=== PATIENT | female | born 1935 | race Caucasian/White ===

== ENCOUNTER → 2023-10-23 15:12 | Outpatient (REF) | payer MEDICARE, OTHER, SELFPAY | LOC: RAD 15:12 | PROVIDERS: ATTENDING PHYSICIAN Orthopaedic Surgery Hand Surgery; FAMILY PHYSICIAN Internal Medicine Geriatric Medicine | DX: M19.011 Primary osteoarthritis, right shoulder (principal) | CPT/HCPCS: 73200 ==

== ENCOUNTER 2023-11-04 06:21 | Day surgery (SDC) | payer MEDICARE, OTHER, SELFPAY ==
--- NOTE | 2023-10-16 15:35 | CM ---
Patient is scheduled for an elective R Reverse TSA on 11/04/23. Spoke with patient's son and Emelina, staff at [facility] prior to surgery. Introduced role of Orthopedic Navigator. Patient lives at [facility] assisted living. Currently she needs assist
for some ADLs. She uses rollator in facility. She has a rolling walker, rollator, w/c, shower seat with rails. She has had [facility] in past and she has been to [facility] in past. PCP is Dr. Olivares.
Discussed orthopedic program and post surgical plans. Reviewed anticipated length of stay and assistance that she may need at discharge. Explained that goal is for her to return home at discharge. Also reviewed MD follow up and transition to
outpatient therapy. Son agrees to what ever team recommends back to [facility] or short stay at [facility].
Son does not live nearby.
Son to assist patient to complete online education.
Plan: Orthopedic Navigator will be involved in the care of patient after surgery and will reassess discharge needs at that time.
[2023-10-23 10:50] VITALS: BMI 40.8
--- NOTE | 2023-10-23 12:37 | CM ---
Emelina Perez from [facility] notified Navigator that after talking to son plan is for patient to go to [facility] after surgery. Son is aware that it will be private pay as patient will not be inpatient at . Referral sent in allscripts to [facility].
[2023-10-23 15:57] VITALS: BMI 40.8
[2023-11-04] VITALS (17 sets, daily range): BP systolic 114–149; BP diastolic 57–88; PULSE 86; O2SAT 96; BMI 40.8
[2023-11-04] MEDS: VANCOCIN 300 MG IV (09:46)
[2023-11-04] MEDS: VANCOCIN 300 ML IV (09:46)
[2023-11-04] MEDS: NORMOSOL-R 1000 IV ×2 (09:47→14:46)
[2023-11-04] MEDS: CELEBREX 200 MG PO (09:48)
[2023-11-04] MEDS: TYLENOL 1000 MG PO (09:48)
--- NOTE | 2023-11-04 15:16 | CON.CAR ---
Addendum entered and electronically signed by Felix Faith MD 11/04/23 17:00:
I saw and examined the patient.
The LEATHER WORKER's note was reviewed and I agree with the note.
88-year-old woman with history of coronary artery disease, LAD stenting 2011, bifascicular block and chronic lower extremity edema who had right shoulder replacement today. Patient had some PVCs on telemetry which prompted a troponin which was 0.07
and consult was requested. Patient is comfortable in no distress no chest pain or shortness of breath. No symptoms to suggest angina. Patient has chronic lower extremity edema respiratory status appears stable and no clear evidence of
decompensated heart failure. Suspect non-RI troponin elevation. ECG sinus rhythm with frequent PVCs.
-Monitor on telemetry
-Check labs including potassium and magnesium
-Follow-up troponin as ordered
-Reassessment in a.m.
Original Note:
Consultation
Consultation Request
Date/Time Consultation Requested: 11/04/23 13:45
Date/Time Consultation Performed: 11/04/23 15:15
Requesting Provider: Beth Leahy PA-C
Performing Provider: HOWARD Doss for Dr. Faith
Reason for Consultation: Abnormal troponin
Medical History
-
Chief Complaint: Right shoulder replacement
History of Present Illness:
Gaby Couch is an 88-year-old female (known to Dr. Steve, her primary audio engineer), with coronary artery disease (mid LAD stent 2011), bifascicular block, PACs, mild/moderate tricuspid regurgitation, hypertension, hyperlipidemia, and chronic right
lower extremity edema presented for scheduled right shoulder replacement with Dr. Fernandez today. Cardiology was consulted after an abnormal troponin was found. This was prompted by changes on her telemetry.
Past Medical History
Past Medical History: CAD, HTN, Hypercholesterolemia, Valvular Disease (Tricuspid valve regurgitation) and Other (Bifascicular block, PACs)
Past Surgical History: Orthopedic
Social History
Tobacco: Non-Smoker
Alcohol: None
Living: Assisted Living ([facility])
Employment: Retired
Family History
Family History: Reviewed & Not Pertinent
Allergies / Home Medications
Allergy/AdvReac Type Severity Reaction Status Date / Time
No Known Drug Allergies Allergy Unknown Verified 11/04/23 09:42
Medication Instructions Recorded Confirmed Type
aspirin 81 mg chewable tablet 81 mg PO DAILY Blood clot 07/13/12 11/04/23 History
prevention/tx
ezetimibe 10 mg tablet 10 mg PO DAILY High cholesterol 05/28/21 11/04/23 History
pravastatin 40 mg tablet 40 mg PO HS High cholesterol 05/28/21 11/04/23 History
acetaminophen 500 mg tablet 1,000 mg PO BID Pain 10/21/23 11/04/23 History
calcium carbonate 600 mg-vitamin 1 tab PO DAILY hypocalcemia 10/21/23 11/04/23 History
D3 10 mcg (400 unit) tablet
(Calcium 600 + D(3))
coenzyme Q10 100 mg capsule 100 mg PO DAILY 10/21/23 11/04/23 History
dextromethorphan-guaifenesin 5 10 ml PO Q4H PRN cough 10/21/23 11/04/23 History
mg-100 mg/5 mL oral liquid
(Robitussin Cough-Chest Congestion
DM)
diclofenac sodium 1 % topical gel 2 g topical QID PRN Pain 10/21/23 11/04/23 History
(Voltaren Arthritis Pain)
gabapentin 100 mg capsule 100 mg PO TID Pain 10/21/23 11/04/23 History
hydrochlorothiazide 12.5 mg tablet 12.5 mg PO DAILY edema 10/21/23 11/04/23 History
multivitamin 1 tab PO DAILY 10/21/23 11/04/23 History
nitroglycerin 0.4 mg sublingual 0.4 mg sublingual Q5-15M PRN chest 10/21/23 10/21/23 History
tablet pain
nystatin 100,000 unit/gram topical 1 applic topical BID B/L groin 10/21/23 11/04/23 History
powder redness
oxycodone-acetaminophen 5 mg-325 0.5 tab PO Q6H PRN moderate to 10/21/23 11/04/23 History
mg tablet severe pain
polyethylene glycol 3350 17 gram 17 grams PO DAILY PRN contipation 10/21/23 10/21/23 History
oral powder packet
sennosides 8.6 mg tablet (senna) 8.6 mg PO PRN PRN constipation 10/21/23 10/21/23 History
trazodone 50 mg tablet 50 mg PO HS insomnia 10/21/23 11/04/23 History
mupirocin 2 % topical ointment 1 applic topical BID infection 10/23/23 Rx
prevention #1 tube
Review of Systems
-
History Source: Patient
All other systems: Negative unless noted
EENT: No Symptoms
Respiratory: No Symptoms
: No Symptoms
Physical Exam
Vital Signs
Temp Pulse Resp BP Pulse Ox
97.8 F 79 15 139/77 97
11/04/23 14:45 11/04/23 15:00 11/04/23 15:00 11/04/23 15:00 11/04/23 15:00
Lab Results
Troponin I 0.070 ng/ml H* 11/04/23 13:24
Physical Exam
General: Well Developed, Well Nourished, No Apparent Distress and Comfortable
HEENT: Normocephalic, Anicteric and Moist Mucous Membranes
Respiratory: Clear and Non Labored Respirations
Cardiac: S1/S2, Irregular Rhythm and Peripheral Edema
Breast: Deferred by me
GI: Soft, Non Tender, Non Distended and Normal Bowel Sounds
Rectal: Deferred by Provider
Genito-urinary: No Costovertebral Tender
Musculoskeletal: No Clubbing and No Cyanosis
Skin: Warm and Dry
Neuro: AO x 3
Hematologic/Lymphatic: No Lymphadenopathy
Psych: Calm
Impression / Plan
-
Abnormal troponin, likely non-ischemic myocardial injury in the setting of noncardiac surgery
-Chest pain free
-Trend to peak, currently 0.070
-EKG in am
CAD, stable without chest pain, LAD stent 2011, continue aspirin
PACs, chronic, asymptomatic, can consider beta-dutch if she becomes symptomatic
Bifascicular block, chronic
Mild to moderate tricuspid regurgitation
Hypercholesterolemia, on pravastatin, myalgias with atorvastatin and rosuvastatin
Data Reviewed
-
EKG: Report Reviewed by me (Sinus rhythm, frequent PVCs, RBBB, rate 90)
Medical Tests (Nuc Med, Echo etc): Report Reviewed by me (Prior echo as above)
Labs: Labs Reviewed by me
Old Records: Reviewed
--- NOTE | 2023-11-04 16:48 | PTCARENOTE ---
Patient admitted from pacu post right total shoulder.Neurovascular assessment is within normal limits and ongoing.The patient denies any pain.Vital signs are stable.Aquacell dressing on the right shoulder is clean and dry with no drainage.The
patient is in her bed with the call del cid in reach.Her family is at the bedside.
[2023-11-04] MEDS: NEURONTIN 200 MG PO ×2 (17:15→22:13)
[2023-11-04] MEDS: TORADOL 15 MG IV (17:16)
[2023-11-04] MEDS: TYLENOL 650 MG PO ×2 (17:16→20:44)
[2023-11-04] MEDS: ASPIRIN 325 MG PO (17:16)
[2023-11-04 17:34] LABS: Troponin I 0.055 ng/ml
[2023-11-04 17:45] LABS: Blood Urea Nitrogen 22 mg/dl (7-17); Calcium 8.5 mg/dl (8.4-10.2); Carbon Dioxide 29 mmol/L (22-30); Chloride 99 mmol/L (98-107); Estimated Creatinine Clearance 49 ml/min; Glucose 144 mg/dl (70-99); Potassium 3.6 mmol/L (3.5-5.1); Sodium 135 mmol/L (135-145); eGFR > 60.00
[2023-11-04] MEDS: BACTROBAN 2% OINTMENT 1 APPLIC NASAL (20:41)
[2023-11-04] MEDS: ANCEF 5 IV (20:41)
[2023-11-04] MEDS: DECADRON 4 MG PO (20:43)
[2023-11-04] MEDS: COLACE 100 MG PO (20:43)
[2023-11-04] MEDS: SENOKOT 17.1999999999999993 MG PO (20:44)
[2023-11-04] MEDS: PRAVACHOL 40 MG PO (22:13)
[2023-11-04] MEDS: PEPCID 20 MG PO (22:13)
[2023-11-04] MEDS: ZETIA 10 MG PO (22:13)
[2023-11-04] MEDS: DESYREL 50 MG PO (22:13)
[2023-11-05] MEDS: TYLENOL 650 MG PO ×4 (01:23→16:20)
[2023-11-05 03:38] VITALS: BP 145/71
[2023-11-05] MEDS: ANCEF 5 IV (04:09)
[2023-11-05] MEDS: TORADOL 15 MG IV (05:42)
[2023-11-05 07:30] VITALS: BP 132/64
--- NOTE | 2023-11-05 08:11 | CM ---
Addendum entered by Zelda Landon 11/05/23 11:53:
Patient has been cleared for discharge to [facility]. Met with patient and her son at bedside. Update provided. Son states that hopeful plan is for patient to return to [place] early next week. He is aware that patient will be private pay at [facility] since
she has not had an inpatient hospital stay.
[facility] Text sent to [facility] at [facility] with update.
Original Note:
Reviewed chart and held rounds with OT and nursing. Patient had planned elective R Reverse TSA yesterday. Met with patient at bedside. Confirmed information previously obtained for case management assessment and discussed discharge plans. The plan
continues to be for patient to go to [facility].
Referral and completed PASRR were sent to [facility]. Per Neha in admissions, bed is available for patient.
Report: [phone]

sample clerk to facilitate stretcher transport. Medical necessity and transport forms completed.
[2023-11-05] MEDS: ASPIRIN 325 MG PO (09:09)
[2023-11-05] MEDS: BACTROBAN 2% OINTMENT 1 APPLIC NASAL (09:09)
[2023-11-05] MEDS: MOBIC 15 MG PO (09:10)
[2023-11-05] MEDS: NEURONTIN 200 MG PO ×2 (09:10→16:21)
[2023-11-05] MEDS: DECADRON 4 MG PO (09:10)
[2023-11-05] MEDS: COLACE 100 MG PO (09:10)
[2023-11-05] MEDS: SENOKOT 17.1999999999999993 MG PO (09:11)
[2023-11-05 11:05] VITALS: BP 148/86
--- NOTE | 2023-11-05 11:57 | W.PN.ORTHO ---
Today's Communication / Plan
-
d/c
Assessment
.
Distal Motor Intact: Yes
Dressing:
Clean, dry and intact.
Assessment:
Troponin elevation/EKG t wave inversion likely due to stress of surgery/demand ischemia with PVCs--remained asymptomatic with trop trended down
--asa and statin continued uninterrupted
--cardiology appreciated
Plan
.
Surgery / Date: AVN-R Reverse TSA Dr. White 11/04/23
DVT Prophylaxis: Aspirin
Activity:
Out of bed.
PT/OT
Discharge Plan: SNF
Subjective
.
.:
Patient resting comfortably.
Vital Signs and Labs
.
Vital Signs and Labs:
Lab Results
11/04/23 17:21
Temp Pulse Resp BP Pulse Ox
98.1 F 106 18 148/86 94
11/05/23 11:05 11/05/23 11:05 11/05/23 11:05 11/05/23 11:05 11/05/23 11:05
Non-invasive Hgb result: 13.0
[2023-11-05] MEDS: TYLENOL PO (12:00)
--- NOTE | 2023-11-05 12:09 | W.DS.TRANS ---
DC Summary - [employer]
-
Discharge Instructions:
Sleep Apnea Risk Intermediate
Discharge Diagnosis/Procedures AVN-R Reverse TSA Dr. White 11/04/23
Diet As tolerated
Activity With assistance
Driving Restrictions No driving
Instructions:
Stand-Alone Forms: Total Shoulder Replacement D/C
Changes to Home Medications: Yes
Discharge Medications:
DC Medications w/original date entered in [employer]
aspirin 81 mg chewable tablet 81 mg PO DAILY Blood clot prevention/tx 07/13/12
ezetimibe 10 mg tablet 10 mg PO DAILY High cholesterol 05/28/21
pravastatin 40 mg tablet 40 mg PO HS High cholesterol 05/28/21
calcium carbonate 600 mg-vitamin D3 10 mcg (400 unit) tablet (Calcium 600 + D(3)) 1 tab PO DAILY hypocalcemia 10/21/23
coenzyme Q10 100 mg capsule 100 mg PO DAILY 10/21/23
dextromethorphan-guaifenesin 5 mg-100 mg/5 mL oral liquid (Robitussin Cough-Chest Congestion DM) 10 ml PO Q4H PRN cough 10/21/23
diclofenac sodium 1 % topical gel (Voltaren Arthritis Pain) 2 g topical QID PRN Pain 10/21/23
gabapentin 100 mg capsule 100 mg PO TID Pain 10/21/23
hydrochlorothiazide 12.5 mg tablet 12.5 mg PO DAILY edema 10/21/23
multivitamin 1 tab PO DAILY 10/21/23
nitroglycerin 0.4 mg sublingual tablet 0.4 mg sublingual Q5-15M PRN chest pain 10/21/23
nystatin 100,000 unit/gram topical powder 1 applic topical BID B/L groin redness 10/21/23
sennosides 8.6 mg tablet (senna) 8.6 mg PO PRN PRN constipation 10/21/23
trazodone 50 mg tablet 50 mg PO HS insomnia 10/21/23
mupirocin 2 % topical ointment 1 applic topical BID infection prevention #1 tube 10/23/23
Saccharomyces boulardii 250 mg capsule (Florastor) 250 mg PO BID #1 cap 11/05/23
acetaminophen 500 mg tablet 1,000 mg PO QID Pain #0 tabs 11/05/23
aspirin 325 mg tablet 325 mg PO DAILY blood clot prevention #1 tab 11/05/23
doxycycline hyclate 100 mg capsule 100 mg PO BID infection prevention #10 caps 11/05/23
oxycodone 5 mg tablet 5 - 10 mg PO Q6HPRN PRN 1 tab moderate-2 tabs severe pain #30 tabs 11/05/23
Home Medication Changes
doxycycline hyclate 100 mg capsule 100 mg PO BID infection prevention #10 caps 11/05/23
oxycodone 5 mg tablet 5 - 10 mg PO Q6HPRN PRN 1 tab moderate-2 tabs severe pain #30 tabs 11/05/23
Pending Results: No
--- NOTE | 2023-11-05 12:24 | W.PN.CD ---
Today's Communication / Plan
-
OK for home
No ACS/OH from our perspective
Impression / Plan
-
Abnormal troponin, most c/w non-ischemic myocardial injury in the setting of noncardiac surgery
-Trop lower, ekg today looks fine
-No CP or dyspnea
CAD, stable without chest pain, LAD stent 2011, continue aspirin
PACs, chronic, asymptomatic, can consider beta-dutch if she becomes symptomatic
Bifascicular block, chronic
Mild to moderate tricuspid regurgitation
Hypercholesterolemia, on pravastatin, myalgias with atorvastatin and rosuvastatin
Physical Exam
Vital Signs/Labs
Vital Signs
Temp Pulse Resp BP Pulse Ox
98.1 F 106 18 148/86 94
11/05/23 11:05 11/05/23 11:05 11/05/23 11:05 11/05/23 11:05 11/05/23 11:05
11/04/23 17:21
Magnesium 2.0 mg/dl (1.6-2.3) 11/04/23 17:21
LAB Results
11/04/23 11/04/23
13:24 17:03
Troponin I 0.070 H* 0.055 H*
Physical Exam
Constitutional: No acute distress
EENT: Anicteric
Cardiovascular: Rhythm & rate is regular and Pedal edema is absent
Respiratory: Respiratory effort normal and Lungs clear to auscul.
GI: Soft and Distention absent
Data Reviewed
-
Date of Service: November 05, 2023
[2023-11-05 15:40] VITALS: BP 168/88
[2023-11-05] MEDS: TORADOL IV (18:38)
== END 2023-11-05 19:05 ==
LOC: SDS 06:21
PROVIDERS: Nurse Practitioner Gerontology; Student in an Organized Health Care Education/Training Program; ATTENDING PHYSICIAN Orthopaedic Surgery Hand Surgery; CONSULT PHYSICIAN Internal Medicine Cardiovascular Disease
DX: M19.011 Primary osteoarthritis, right shoulder (principal); M87.811 Other osteonecrosis, right shoulder; M75.101 Unspecified rotator cuff tear or rupture of right shoulder, not specified as traumatic; E66.01 Morbid (severe) obesity due to excess calories; Z68.41 Body mass index [BMI] 40.0-44.9, adult; I49.3 Ventricular premature depolarization; R79.89 Other specified abnormal findings of blood chemistry
CPT/HCPCS: 23472; C1776; 73020; 80048; 83735; 84484; 86850; 86900; 86901; 87070; 93005; 97166; C1713

== ENCOUNTER → 2023-11-13 11:31 | Outpatient (REF) | payer OTHER, MEDICARE, SELFPAY ==
[2023-11-13 12:38] LABS: Blood Urea Nitrogen 13 mg/dl (7-17); Calcium 8.7 mg/dl (8.4-10.2); Carbon Dioxide 33 mmol/L (22-30); Chloride 97 mmol/L (98-107); Glucose 79 mg/dl (70-99); Potassium 3.2 mmol/L (3.5-5.1); Sodium 134 mmol/L (135-145); eGFR > 60.00
== END ==
LOC: OLABP 11:31
PROVIDERS: ATTENDING PHYSICIAN Family Medicine
DX: M19.011 Primary osteoarthritis, right shoulder (principal); I11.9 Hypertensive heart disease without heart failure; E78.5 Hyperlipidemia, unspecified; I25.10 Atherosclerotic heart disease of native coronary artery without angina pectoris
CPT/HCPCS: 36415; 80048

== ENCOUNTER → 2023-12-17 15:18 | Outpatient (REF) | payer MEDICARE, OTHER, SELFPAY ==
[2023-12-17 16:18] LABS: % Basophils 1.1 % (0-2); % Eosinophils 2.4 % (0-6); % Immature Granulocytes 0.4 % (0-0.5); % Lymphocytes 20.5 % (20.5-51.1); % Monocytes 10.6 % (1.7-9.3); Absolute Basophils 0.1 10^3/uL (0-0.2); Absolute Eosinophils 0.1 10^3/uL (0-0.7); Absolute Lymphocytes 1.1 10^3/uL (1.2-3.4); Absolute Monocytes 0.6 10^3/uL (0.1-0.6); Absolute Neutrophils 3.6 10^3/uL (1.4-6.5); Hematocrit 31.7 % (37.0-47.0); Hemoglobin 10.2 g/dL (12.0-16.0); Mean Corp Hgb Conc. 32.2 g/dL (33.0-37.0); Mean Corpuscular Hgb 30.6 pg (27.0-31.0); Mean Corpuscular Volume 95.2 fL (81.0-99.0); Mean Platelet Volume 9.1 fL (7.4-10.4); Nucleated Red Blood Cells % 0 %; Platelet Count 174 10^3/uL (130-400); Red Blood Cell Count 3.33 10^6/uL (4.20-5.40); Red Cell Dist. Width 15.4 % (11.5-14.5); White Blood Cell Count 5.5 10^3/uL (4.8-10.8)
[2023-12-17 16:37] LABS: ALT (SGPT) 12 U/L (0-35); AST (SGOT) 24 U/L (14-36); Albumin 3.8 g/dl (3.5-5.0); Alkaline Phosphatase 87 U/L (38-126); Blood Urea Nitrogen 19 mg/dl (7-17); Calcium 9.7 mg/dl (8.4-10.2); Carbon Dioxide 27 mmol/L (22-30); Chloride 101 mmol/L (98-107); Glucose 93 mg/dl (70-99); Potassium 4.1 mmol/L (3.5-5.1); Sodium 135 mmol/L (135-145); Total Bilirubin 0.5 mg/dl (0.2-1.3); eGFR > 60.00
[2023-12-17 16:41] LABS: NT-proBNP 2160 pg/ml
== END ==
LOC: RAD 15:18
PROVIDERS: ATTENDING PHYSICIAN Nurse Practitioner Family; FAMILY PHYSICIAN Internal Medicine Geriatric Medicine
DX: R60.0 Localized edema (principal); I10 Essential (primary) hypertension; M19.011 Primary osteoarthritis, right shoulder; M25.511 Pain in right shoulder; M54.16 Radiculopathy, lumbar region; I25.10 Atherosclerotic heart disease of native coronary artery without angina pectoris; E78.2 Mixed hyperlipidemia; G50.0 Trigeminal neuralgia; Z71.89 Other specified counseling; G89.29 Other chronic pain; Z13.89 Encounter for screening for other disorder
CPT/HCPCS: 36415; 80053; 83880; 85025; 93970

== ENCOUNTER → 2024-01-09 12:34 | Outpatient (REF) | payer MEDICARE, OTHER, SELFPAY ==
[2024-01-09 13:02] LABS: Blood Urea Nitrogen 17 mg/dl (7-17); Calcium 9.4 mg/dl (8.4-10.2); Carbon Dioxide 30 mmol/L (22-30); Chloride 97 mmol/L (98-107); Glucose 90 mg/dl (70-99); Potassium 3.5 mmol/L (3.5-5.1); Sodium 133 mmol/L (135-145); eGFR > 60.00
== END ==
LOC: OLABLV 12:34
PROVIDERS: ATTENDING PHYSICIAN Nurse Practitioner Family; REFERRING PHYSICIAN Nurse Practitioner
DX: I10 Essential (primary) hypertension (principal); R60.0 Localized edema
CPT/HCPCS: 36415; 80048

== ENCOUNTER 2024-01-28 10:17 | Emergency (ER) | payer MEDICARE, OTHER, SELFPAY ==
[2024-01-28 10:19] VITALS: BP 150/95
--- NOTE | 2024-01-28 11:08 | ED.GENMED ---
History of Present Illness
<Jasmyne Walton PA-C - Last Filed: 01/28/24 18:44>
General
Chief Complaint: Cough
Source: patient
Exam Limitations: none
Time Seen by Provider: 01/28/24 10:49
Nursing documentation reviewed up to this point in time: agreed with
Travel History
Have you had any contact with someone who has COVID-19?: No
Do you have any symptoms of coronavirus? Fever > 100 degrees, chills, cough, shortness of breath, sore throat, loss of taste or smell, muscle aches, or headache?: No
History of Present Illness
History of Present Illness:
Patient is a 88 year old with hx HTN, HLD, CAD presenting to the emergency department via EMS for evaluation of cough. Is unclear how long cough has been ongoing, although patient does report worsening over the past 4 to 5 days. Patient describes
as a dry cough without any sputum production. Patient denies any other associated upper respiratory symptoms including sore throat, nasal congestion, headache. Patient denies any fever, chest pain, shortness of breath. She does endorse some
chills over the past few days.
Patient did see her primary care provider last week where she was prescribed some cough syrup which has not led to any improvement. Patient has used a nebulizer machine in the past which does lead to some improvement.
Patient has no history of asthma or COPD. Patient denies any history of smoking.
Past History
<Jasmyne Walton PA-C - Last Filed: 01/28/24 18:44>
Past History
ED Past Medical History: CAD, HTN, Hypercholesterolemia and Other (Trigeminal Neuralgia, Vertigo, scoliosis w/ lumbar radiculopathy); Negative IDDM or NIDDM
ED Past Surgical History: Cardiac (stent), Orthopedic (TKR) and Other (carpal tunnel repair)
Social History
Tobacco: Non-smoker
Alcohol: Occasional
Drug: None
Personal:
Living: assisted ([employer])
Employment: Retired
Family History
Family History: CAD (Father with history of coronary artery disease later in life); Negative Early CAD or Sudden
Review of Systems
<Jasmyne Walton PA-C - Last Filed: 01/28/24 18:44>
Review of Systems
Allergies reviewed?: Yes
All Other Systems: ROS reviewed and negative except as documented in HPI and ROS
Phy Exam
<Jasmyne Walton PA-C - Last Filed: 01/28/24 18:44>
Physical Exam
Physical Exam:
Vitals: Patient's vital signs are stable. Afebrile. Oxygen saturation 97 on room air. Frequent coughing on examination
General: Patient is well appearing, no acute distress. Nontoxic appearing.
Skin: Warm and dry, no rashes or lesions
Head: Normocephalic, atraumatic
Eyes: Sclera nonicteric. EOMs intact. No nystagmus.
Throat: Protecting airway
Neck: Normal ROM, no cervical spine tenderness, no meningismus. Trachea midline
Cardiac: Regular rate and rhythm, no murmurs.
Pulm: Scattered wheeze bilaterally. No evidence of respiratory distress. Oxygen saturation 97 on room air. Normal respiratory effort. No
Abdomen: Abdomen soft, nontender. Non distended.
Extremities: Bilateral lower extremity edema�which is chronic. Nontender. Good distal pulses.
Neuro: AAOx3. CN II-XII intact. No focal neurologic deficits.
Psychiatric: Normal affect.
Course
<Jasmyne Walton PA-C - Last Filed: 01/28/24 18:44>
Orders/Labs/Results
Orders:
Orders
01/28/24 10:42
CR Chest - 2 Views Urgent
Comment:
Reason For Exam: cough
01/28/24 10:52
COVID-19 Antigen Urgent
Source: Nasal Swab
Influenza A+B Rapid Molecular Urgent
[facility]ALI Source: Nasal Swab
Specimen Description:
01/28/24 11:15
Ipratropium/Albuterol Sulfate [Duoneb] 3 ml INH R NOW STA
01/28/24 11:19
Ipratropium/Albuterol Sulfate [Duoneb] 3 ml .ROUTE .STK-MED ONE
01/28/24 11:28
Prednisone [Deltasone] 50 mg PO NOW STA
01/28/24 12:12
Ipratropium/Albuterol Sulfate [Duoneb] 3 ml INH R NOW STA
01/28/24 14:52
Doxycycline [Vibramycin] 100 mg PO NOW STA
Vital Signs
Initial and Last Documented VS:
Initial Vital Signs
Temp Pulse Resp BP Pulse Ox
97.8 F 99 18 150/95 97
01/28/24 10:19 01/28/24 10:19 01/28/24 10:19 01/28/24 10:19 01/28/24 10:19
Last Documented Vital Signs
Temp Pulse Resp BP Pulse Ox
97.8 F 69 16 128/54 96
01/28/24 10:19 01/28/24 13:03 01/28/24 13:03 01/28/24 13:03 01/28/24 14:51
Isaaclt;Russell Estes, - Last Filed: 01/28/24 11:33>
Orders/Labs/Results
Orders:
Orders
01/28/24 10:42
CR Chest - 2 Views Urgent
Comment:
Reason For Exam: cough
01/28/24 10:52
COVID-19 Antigen Urgent
Source: Nasal Swab
Influenza A+B Rapid Molecular Urgent
KALI Source: Nasal Swab
Specimen Description:
01/28/24 11:15
Ipratropium/Albuterol Sulfate [Duoneb] 3 ml INH R NOW STA
01/28/24 11:19
Ipratropium/Albuterol Sulfate [Duoneb] 3 ml .ROUTE .STK-MED ONE
01/28/24 11:28
Prednisone [Deltasone] 50 mg PO NOW STA
01/28/24 12:12
Ipratropium/Albuterol Sulfate [Duoneb] 3 ml INH R NOW STA
01/28/24 14:52
Doxycycline [Vibramycin] 100 mg PO NOW STA
Vital Signs
Initial and Last Documented VS:
Initial Vital Signs
Temp Pulse Resp BP Pulse Ox
97.8 F 99 18 150/95 97
01/28/24 10:19 01/28/24 10:19 01/28/24 10:19 01/28/24 10:19 01/28/24 10:19
Last Documented Vital Signs
Temp Pulse Resp BP Pulse Ox
97.8 F 69 16 128/54 96
01/28/24 10:19 01/28/24 13:03 01/28/24 13:03 01/28/24 13:03 01/28/24 14:51
<Jasmyne Walton PA-C - Last Filed: 01/28/24 18:44>
MDM/Problems Addressed
Differential Diagnosis Includes:
Not limited to: Bronchitis, viral illness, pneumonia, asthma, COPD, pleural effusion
MDM/Problems Addressed:
88-year-old female presenting for evaluation of persistent and worsening cough for the past 4 to 5 days. Seen by her primary care provider about a week ago who recommended OTC cough syrup without much improvement. No chest pain, shortness of
breath. Cough is nonproductive. Patient denies any recent fevers. No other complaints. Vital signs are stable. Oxygen saturation is 97 on room air. Exam as above. She is generally well-appearing, although coughing frequently throughout
examination. Nontoxic-appearing. Heart with regular rate and rhythm. No evidence of respiratory distress with normal work of breathing. She does have significant wheezing bilaterally. Viral swabs obtained in triage are negative for both COVID
and flu. Will check chest x-ray, although doubt pneumonia. Suspect likely viral bronchitis with lingering cough. Will treat with DuoNeb, steroids and reassess.
Chest x-ray shows no evidence of acute lobar pneumonia.
-12:05PM: In to reassess patient at bedside. Patient sleeping comfortably after first DuoNeb. She states she is feeling better and coughing less frequently. On repeat lung exam wheezing has definitely improved although there is still some
scattered wheezing. Will give another DuoNeb and reassess.
-Following second DuoNeb patient is once again sleeping comfortably without any cough. She reports feeling improved since arrival. Wheezing much improved although still minimally present. Patient has remained stable with heart rate in 70s and
oxygen saturation 96 on room air.
Given patient's significant improvement in symptoms since arrival and stable vital signs throughout duration in emergency department�I do feel she is stable for discharge home. Chest x-ray shows no findings of acute pneumonia or other pulmonary
process. Patient has stable vital signs, is afebrile, and nontoxic-appearing. She is maintaining oxygen saturation in mid to upper 90s on room air. Given age and duration of symptoms�will prophylactically treat patient with doxycycline for
possible developing pneumonia. Will discharge with 4 days of prednisone. Patient states that she has nebulizer machine at home. Will send with albuterol solution to use at home for cough. Return precautions discussed at length. Patient
comfortable with plan. All questions answered.
Chronic conditions affecting care:
Hypertension
Acute Exacerbation and/or Progression of Chronic Illness:
Acutely hypertensive
<Jasmyne Walton PA-C - Last Filed: 01/28/24 18:44>
*Radiology
Radiology exam reviewed: preliminary read by ED provider and radiology read reviewed
*Pulse Oximetry
Patient hypoxic: no
*EKG
Interpreted by ED Provider?: NA
*Miniature Train Driver Interpretation
Rate: normal
Interpretation: normal
Heart Rate: 68
Rhythm: sinus
*Critical Care Note
Total Time (30-74mins, 75-104mins- exclusive of procedures): Not Applicable
ED Attending Note
<Jasmyne Walton PA-C - Last Filed: 01/28/24 18:44>
-
Portions of this chart may have been created with voice recognition software.� Occasional wrong word or��sound alike� substitutions may have occurred due to the inherent limitations of voice recognition software.
<Russell Estes DO - Last Filed: 01/28/24 11:33>
ED Attending Note
Patient seen and examined by attending physician: Yes
I performed the substantive portion of visit, reviewed & personally made and approve the management plan that is documented in note by myself or ELLIE.: Yes
ED Attending Note:
I agree with Angie's note.
88-year-old female presents complaining of shortness of breath and cough. Symptoms have been present for the past 4 days.
General: Awake, Alert, Oriented X3. No acute distress.
Vitals: unremarkable
Head: Atraumatic
Eyes: Pupils equal, EOMI
Throat: Airway intact, no exudates
Neck: Trachea midline
Lungs: Expiratory wheezing bilaterally
Heart: Regular rate, no murmurs
Neuro: Nonfocal
Skin: Warm, dry, no rash
Extremities: 2+ edema which is chronic
COVID and flu are negative. Will treat with nebs and oral steroids. Check chest x-ray. Dispo will depend on response to treatment
Discharge Plan
Departure
Patient Disposition: Home (Routine Discharge)
Date of Disposition: 01/28/24
Time of Disposition: 15:04
Patient with high blood pressure during this ER visit?: No
Condition: Good
Covid-19: Not Applicable
Discharge Problem:
Cough, Acute bronchitis
Instructions: Cough, Adult ED, Bronchitis, Adult ED
Prescriptions:
New
prednisone 50 mg tablet
50 mg PO DAILY Qty: 4 0RF
doxycycline monohydrate 100 mg capsule
100 mg PO BID 5 Days Qty: 10 0RF
albuterol sulfate 2.5 mg /3 mL (0.083 %) solution for nebulization
2.5 mg inhalation Q6H PRN (Reason: shortness of breath or wheezing) Qty: 75 0RF
No Action
aspirin 81 MG tablet,chewable
81 mg PO DAILY
Hold Instructions: Resume on 12/04/23.
pravastatin 40 MG tablet
40 mg PO HS
ezetimibe 10 MG tablet
10 mg PO DAILY
multivitamin Tablet
1 tab PO DAILY
trazodone 50 mg Tablet
50 mg PO HS
nitroglycerin 0.4 mg Tablet, Sublingual
0.4 mg SUBLINGUAL Q5-15M PRN (Reason: chest pain)
nystatin 100,000 unit/gram Powder
1 applic TOPICAL BID
dextromethorphan-guaifenesin [Robitussin Cough-Chest Kane DM] 5-100 mg/5 mL Liquid
10 ml PO Q4H PRN (Reason: cough)
coenzyme Q10 100 mg Capsule
100 mg PO DAILY
Hold Instructions: Resume on 11/13/23.
calcium carbonate-vitamin D3 [Calcium 600 + D(3)] 600 mg-10 mcg (400 unit) Tablet
1 tab PO DAILY
hydrochlorothiazide 12.5 mg Tablet
12.5 mg PO DAILY
diclofenac sodium [Voltaren Arthritis Pain] 1 % Gel
2 g TOPICAL QID PRN (Reason: Pain)
sennosides [senna] 8.6 mg tablet
8.6 mg PO PRN PRN (Reason: constipation)
gabapentin 100 mg capsule
100 mg PO TID
mupirocin 2 % ointment
1 applic topical BID Qty: 1 0RF
Patient Comments:
Patient had this @ 08:20 today 11/04/23. Patient started this medication on 11/01/23 in the evening.
doxycycline hyclate 100 mg capsule
100 mg PO BID Qty: 10 0RF
Rx Instructions:
Take with probiotic
aspirin 325 mg tablet
325 mg PO DAILY Qty: 1 0RF
Rx Instructions:
Take with food
oxycodone 5 mg tablet
5 - 10 mg PO Q6HPRN PRN (Reason: 1 tab moderate-2 tabs severe pain) Qty: 30 0RF
Rx Instructions:
Dx surgery
ongoing therapy
Post-op use
Saccharomyces boulardii [Florastor] 250 mg capsule
250 mg PO BID Qty: 1 0RF
acetaminophen 500 mg Tablet
1,000 mg PO QID Qty: 0 0RF
Referrals:
Michoacano Olivares MD [Family Provider] - Follow up in 2-3 days
Activity Restrictions/Additional Instructions:
RETURN TO THE EMERGENCY DEPARTMENT WITH ANY FEVERS, CHILLS, WORSENING SHORTNESS OF BREATH/DIFFICULTY BREATHING, PERSISTENT COUGH, COUGHING UP BLOOD, CHEST PAIN, WORSENING IN CURRENT SYMPTOMS, OR ANY OTHER CONCERNS
-3 prescriptions have been sent to your pharmacy. You were given your first dose of prednisone in the emergency department today. You can start 4-day course of prednisone tomorrow. You should take the antibiotic twice a day for the next 5 days.
You were given your first dose today. You can use the albuterol solution in your nebulizer machine that you have at home every 6 hours as needed for cough/wheezing.
-It is important stay well-hydrated.
-As discussed�you must follow-up with your primary care provider in the next few days to ensure symptoms are improving/for further management. Do not hesitate to return to the emergency department any acute worsening.
Interventions
Interventions:
*Risk Screen - Suicide Last Done: 01/28/24 10:19
*General Assessment Last Done: 01/28/24 10:19
*Neglect/Abuse Screening Last Done: 01/28/24 10:19
*ED COVID-19 Vaccine History Last Done: 01/28/24 10:19
*Nursing Disposition Last Done: 01/28/24 17:46
ED- Pulmonary Assessment Last Done: 01/28/24 10:54
Discharge Date and Time
Discharge Date/Time: 01/28/24 17:47
Print Language: TAJIK
[2024-01-28 11:16] LABS: COVID-19 Antigen Negative (Negative)
[2024-01-28] MEDS: DUONEB 3 ML INH ×2 (11:21→12:16)
[2024-01-28] MEDS: DELTASONE 50 MG PO (12:01)
[2024-01-28 12:08] VITALS: BP 123/70
[2024-01-28 13:03] VITALS: BP 128/54
--- NOTE | 2024-01-28 13:04 | EDRN ---
Sleeping: pulseox 89% RA. To 94% when awakened.
[2024-01-28] MEDS: VIBRAMYCIN 100 MG PO (15:02)
--- NOTE | 2024-01-28 16:50 | EDRN ---
called [facility]. Notified answering staff member (Anai) that pt would be returning. Held 5 minutes for nurse no mixing picker tender. D/C papers and paper back-up Rx to be transported with pt.
--- NOTE | 2024-01-28 17:46 | EDRN ---
17:32 Spoke with pt's son Yassine [phone].
== END 2024-01-28 17:47 | disposition home or self-care (01) ==
LOC: EMR 10:17
PROVIDERS: EMERGENCY PHYSICIAN Emergency Medicine; FAMILY PHYSICIAN Internal Medicine Geriatric Medicine
DX: J20.9 Acute bronchitis, unspecified (principal); R05.9 Cough, unspecified; Z11.52 Encounter for screening for COVID-19; I10 Essential (primary) hypertension; I25.10 Atherosclerotic heart disease of native coronary artery without angina pectoris; E78.00 Pure hypercholesterolemia, unspecified; G50.0 Trigeminal neuralgia; M54.16 Radiculopathy, lumbar region; M41.9 Scoliosis, unspecified; M19.90 Unspecified osteoarthritis, unspecified site; M81.0 Age-related osteoporosis without current pathological fracture; I25.2 Old myocardial infarction; Z95.5 Presence of coronary angioplasty implant and graft; Z96.651 Presence of right artificial knee joint
CPT/HCPCS: 99283; 71046; 87502; 87811